=== PATIENT | female | born 1960 ===

== ENCOUNTER 2018-12-06 17:37 | Inpatient (IN) ==
[2018-12-06] MEDS ORDERED: BISACODYL 5 MG TABLET PO PRN (21:43)
[2018-12-06] MEDS ORDERED: NICOTINE 21 MG/24 HR PATCH TRANSDERM PRN (21:43)
[2018-12-06] MEDS ORDERED: ZALEPLON 5 MG CAPSULE PO PRN (21:43)
[2018-12-06] MEDS ORDERED: ONDANSETRON 4 MG/2 ML VIAL IV PRN (21:43)
[2018-12-06] MEDS ORDERED: ACETAMINOPHEN 325 MG TABLET PO PRN (21:43)
[2018-12-06] MEDS ORDERED: guaiFENesin/DM ER 600-30 MG TABLET PO PRN (21:43)
[2018-12-06] MEDS ORDERED: diphenhydrAMINE CAP 25 MG CAPSULE PO PRN (21:43)
[2018-12-06 22:22] LABS: Basophils % 0.4 % (0.0-0.8); Eosinophils # 0.1 10*3/uL (0.0-0.87); Eosinophils % 0.5 % (0.00-10.9); Hematocrit 39.5 VOL% (35.7-47.0); Hemoglobin 13.4 GM/DL (12.0-16.0); Immature Granulocytes % 0.5 %; Immature Granulocytes Absolute 0.05 #; Lymphocytes # 1.8 10*3/uL (1.4-4.0); Lymphocytes % 17.7 % (21.3-54.2); Mean Corpuscular HGB Conc 33.9 GM/DL (32-36); Mean Corpuscular Volume 86.6 FL (87-102); Mean Platelet Volume 9.6 FL (9.6-12.0); Monocytes % 7.9 % (1.7-12.7); Platelet Count 262 T/CUMM (130-400); Red Blood Count 4.56 MC/CUMM (3.8-5.5); Red Cell Distribution Width 12.7 % (9.3-17.3); White Blood Count 10.2 T/CUMM (4-12)
[2018-12-06 22:47] LABS: Albumin 3.4 G/DL (3.4-5.0); Bilirubin,Total 0.5 MG/DL (0.2-1.0); Calcium 9.2 MG/DL (8.5-10.1); Total Protein 7.9 G/DL (6.4-8.3)
[2018-12-06] MEDS: SODIUM CHLORIDE 0.9% 1,000 ML IV SCH (23:32)
[2018-12-07] MEDS ORDERED: DEXTROSE 50% 25 GM/50 ML VIAL IV PRN (02:25)
[2018-12-07] MEDS ORDERED: GLUCAGON 1 MG VIAL IM PRN (02:25)
[2018-12-07 07:03] LABS: Apearance,Urine CLEAR (Clear); Bilirubin,Urine Negative (Negative); Blood, Urine Negative (Negative); Glucose,Urine (UA) Negative (Negative); Ketones,Urine Negative (Negative); Nitrite,Urine Negative (Negative); Protein,Urine Negative; RBC,Urine 2 /HPF (0-4); Squamous Epithelial Cell,Urine Occasional /HPF (0-10); Urine Color Straw (Yellow); Urine Specific Gravity 1.002 (1.001-1.035); Urine Urobilinogen < 2.0 EU/DL (0.2-1.0); WBC,Urine 1 /HPF (0-6)
[2018-12-07] MEDS: INSULIN REGULAR 100 UNIT/ML SUBCUT SCH ×4 (07:08→21:32)
[2018-12-07] MEDS: VANCOMYCIN INJ 1,250 MG in SODIUM CHLORIDE 0.9% 250 ML IV SCH ×2 (09:57→21:33)
[2018-12-07] MEDS: SODIUM CHLORIDE 0.9% 1,000 ML IV SCH ×2 (09:57→21:32)
[2018-12-07] MEDS: MORPHINE 4 MG/1 ML VIAL IV PRN (11:16)
[2018-12-07] MEDS ORDERED: hydrALAZINE 10 MG TABLET PO PRN (13:52)
[2018-12-07] MEDS: LISINOPRIL 20 MG TABLET PO SCH (15:21)
[2018-12-07] MEDS ORDERED: ERYTHROMYCIN BOTH EYES SCH (17:00)
[2018-12-07] MEDS: SIMVASTATIN 40 MG TABLET PO SCH (21:31)
[2018-12-07] MEDS: glyBURIDE/METFORMIN 5-500 MG TABLET PO SCH (21:31)
[2018-12-08] MEDS: MORPHINE 4 MG/1 ML VIAL IV PRN (03:53)
[2018-12-08] MEDS: VANCOMYCIN INJ 1,250 MG in SODIUM CHLORIDE 0.9% 250 ML IV SCH ×2 (08:37→21:08)
[2018-12-08] MEDS: LISINOPRIL 20 MG TABLET PO SCH (08:38)
[2018-12-08] MEDS: glyBURIDE/METFORMIN 5-500 MG TABLET PO SCH (08:38)
[2018-12-08] MEDS: INSULIN REGULAR 100 UNIT/ML SUBCUT SCH ×4 (09:22→21:07)
[2018-12-08] MEDS ORDERED: LIDOCAINE 1%/EPI INJ 20 ML VIAL ONE (13:44)
[2018-12-08] MEDS ORDERED: BUPIVACAINE 0.25% /EPI 10 ML VIAL ONE (13:44)
[2018-12-08] MEDS: LACTATED RINGERS 1,000 ML IV SCH ×2 (14:25→17:40)
[2018-12-08] MEDS ORDERED: PROPOFOL 200 MG/20 ML VIAL IV ONE (14:58)
[2018-12-08] MEDS ORDERED: SEVOFLURANE 1 UNIT/15 MINUTE INH ONE (14:58)
[2018-12-08] MEDS ORDERED: ONDANSETRON 4 MG/2 ML VIAL ONE ×2 (14:59→16:00)
[2018-12-08] MEDS ORDERED: MIDAZOLAM 2 MG/2 ML VIAL ONE (14:59)
[2018-12-08] MEDS ORDERED: fentaNYL 100 MCG/2 ML VIAL ONE (14:59)
[2018-12-08] MEDS ORDERED: ONDANSETRON 4 MG/2 ML VIAL IV PRN (15:59)
[2018-12-08] MEDS ORDERED: HYDROmorphone 2 MG/1 ML VIAL ONE (15:59)
[2018-12-08] MEDS: HYDROmorphone 2 MG/1 ML VIAL IV PRN ×2 (16:00→16:05)
[2018-12-08] MEDS: SODIUM CHLORIDE 0.9% 1,000 ML IV SCH ×2 (17:06)
[2018-12-08] MEDS: LEVOFLOXACIN INJ 500 MG in PREMIX 1 EACH IV SCH (17:06)
[2018-12-08] MEDS: metroNIDAZOLE INJ 500 MG in PREMIX 1 EACH IV SCH (18:26)
[2018-12-08] MEDS: SIMVASTATIN 40 MG TABLET PO SCH (21:07)
[2018-12-09] MEDS: metroNIDAZOLE INJ 500 MG in PREMIX 1 EACH IV SCH ×3 (01:20→17:57)
[2018-12-09 05:32] LABS: Basophils % 0.3 % (0.0-0.8); Eosinophils % 0.6 % (0.00-10.9); Hematocrit 35.2 VOL% (35.7-47.0); Hemoglobin 12.4 GM/DL (12.0-16.0); Immature Granulocytes % 0.4 %; Immature Granulocytes Absolute 0.03 #; Lymphocytes # 1.6 10*3/uL (1.4-4.0); Lymphocytes % 22.5 % (21.3-54.2); Mean Corpuscular HGB Conc 35.2 GM/DL (32-36); Mean Corpuscular Volume 85.2 FL (87-102); Mean Platelet Volume 9.9 FL (9.6-12.0); Monocytes % 8.6 % (1.7-12.7); Neutrophils % 67.6 % (38.7-73.9); Platelet Count 236 T/CUMM (130-400); Red Blood Count 4.13 MC/CUMM (3.8-5.5); Red Cell Distribution Width 12.7 % (9.3-17.3)
[2018-12-09] MEDS: LISINOPRIL 20 MG TABLET PO SCH (09:05)
[2018-12-09] MEDS: SODIUM CHLORIDE 0.9% 1,000 ML IV SCH (09:44)
[2018-12-09] MEDS: INSULIN REGULAR 100 UNIT/ML SUBCUT SCH ×4 (09:44→20:55)
[2018-12-09] MEDS: VANCOMYCIN INJ 1,250 MG in SODIUM CHLORIDE 0.9% 250 ML IV SCH ×2 (11:19→20:51)
[2018-12-09] MEDS: amLODIPine 5 MG TABLET PO SCH (14:25)
[2018-12-09] MEDS: MORPHINE 4 MG/1 ML VIAL IV PRN (16:33)
[2018-12-09] MEDS: LEVOFLOXACIN INJ 500 MG in PREMIX 1 EACH IV SCH (16:34)
[2018-12-09] MEDS: SODIUM HYPOCHLORITE 0.25% IRRIG 473 ML BOTTLE TOP SCH (16:52)
[2018-12-09] MEDS: SIMVASTATIN 40 MG TABLET PO SCH (20:50)
[2018-12-10] MEDS: metroNIDAZOLE INJ 500 MG in PREMIX 1 EACH IV SCH ×2 (00:46→08:46)
[2018-12-10] MEDS: SODIUM CHLORIDE 0.9% 1,000 ML IV SCH (03:35)
[2018-12-10] MEDS: amLODIPine 5 MG TABLET PO SCH (08:45)
[2018-12-10] MEDS: LISINOPRIL 20 MG TABLET PO SCH (08:45)
[2018-12-10] MEDS: INSULIN REGULAR 100 UNIT/ML SUBCUT SCH ×2 (08:48→14:19)
[2018-12-10] MEDS: VANCOMYCIN INJ 1,250 MG in SODIUM CHLORIDE 0.9% 250 ML IV SCH (10:39)
[2018-12-10 11:44] VITALS: BP 156/78
[2018-12-10] MEDS: MORPHINE 4 MG/1 ML VIAL IV PRN (12:00)
[2018-12-10] MEDS: SODIUM HYPOCHLORITE 0.25% IRRIG 473 ML BOTTLE TOP SCH (12:00)
== END 2018-12-10 16:30 | disposition home or self-care (01) | DRG 571 ==
LOC: N.5E 19:35 → INTOOBSV 19:35 → SUATTDRO 19:35
PROVIDERS: ADMIT Internal Medicine; ATTEND Internal Medicine